=== PATIENT | male | born 1955 | race American Indian/Alaskan Native ===

== ENCOUNTER 2016-08-29 18:06 | Inpatient (IN) | payer OTHER ==
[2016-08-29 18:55] LABS: Anion Gap 16 mmol/L; BUN/Creatinine Ratio 11.57; Blood Urea Nitrogen 22 mg/dL (9-20); Calcium 9.2 mg/dL (8.4-10.2); Carbon Dioxide 28 mmol/L (22-30); Chloride 97.4 mmol/L (98-107); Glucose 98 mg/dL (75-100); Potassium 3.4 mmol/L (3.6-5.0); Sodium 138 mmol/L (137-145)
[2016-08-29 19:01] LABS: Basophils % (Auto) 0.5 % (0.0-1.8); Eosinophils % (Auto) 1.7 % (0.0-4.3); Hematocrit 42.5 % (35.5-45.6); Hemoglobin 13.8 gm/dl (11.8-15.2); Mean Corpuscular HGB Conc 33 % (32-34); Mean Corpuscular Hemoglobin 27 pg (28-32); Mean Corpuscular Volume 83 fl (84-94); Platelet Count 147 K/mm3 (140-440); Red Blood Count 5.14 M/mm3 (3.65-5.03); Red Cell Distribution Width 14.4 % (13.2-15.2); White Blood Count 6.3 K/mm3 (4.5-11.0)
--- NOTE | 2016-08-29 20:03 | XRay Report ---
FINAL REPORT EXAM: XR CHEST ROUTINE 2V HISTORY: Shortness of breath TECHNIQUE: PA and lateral chest radiographs PRIORS: None. FINDINGS: No focal consolidations are seen in the lungs and there are no pleural effusions.The cardiomediastinal silhouette is within normal limits for size and contour. No acute osseous abnormality is identified. IMPRESSION: 1. No definite radiographic evidence of acute cardiopulmonary disease. 2. No focal infiltrate is identified.
--- NOTE | 2016-08-30 07:20 | Emergency Department Report ---
HPI - General Chief Complaint: Weakness Time Seen by Provider: 08/30/16 06:58 - HPI HPI: This is a 61-year-old -[place] male who presents to the emergency department from home with complaint of a low heart rate and some dizziness. This been going on since early Tuesday morning, yesterday. Patient says that the dizziness feels as if he is going to pass out but he denies any vertigo- like sensation as if the room is spinning. He denies any headache, vision change, chest pain, shortness of breath or any other neurological deficits. His took his pulse at home and found it to be 40 bpm. He has a history of hypertension for which he takes losartan, hydrochlorothiazide and amlodipine. He has some known history of renal insufficiency. He otherwise did not take anything for symptoms prior to presentation. His primary care doctor is a Dr. Kiser and he does not have any cardiology group. No recent travel or sick contacts at home. ED Past Medical Hx - Past Medical History Previous Medical History?: Yes - Surgical History Past Surgical History?: Yes Additional Surgical History: Shoulder - Social History Smoking Status: Never Smoker Substance Use Type: None - Medications Home Medications: Home Medications Medication Instructions Recorded Confirmed Last Taken Type Chrom Allie/Brindal Mo [Garcinia 1 each PO DAILY 08/30/16 08/30/16 Unknown History Cambogia Tablet] Fenofibrate [Lofibra] 54 mg PO QDAY 08/30/16 08/30/16 Unknown History Latanoprost 0.005% [Xalatan 0.005%] 1 drop OP QPM 08/30/16 08/30/16 Unknown History Losartan/Hydrochlorothiazide 1 each PO DAILY 08/30/16 08/30/16 Unknown History [Losartan-Hctz 100-25 mg Tab] Timolol 0.5% [Timoptic] 1 drops OP BID 08/30/16 08/30/16 Unknown History amLODIPine [Norvasc] 10 mg PO DAILY 08/30/16 08/30/16 Unknown History traMADol [Ultram] 50 mg PO Q6HR PRN 08/30/16 08/30/16 Unknown History ED Review of Systems ROS: Stated complaint: DIZZY/POSS LOW PULSE Other details as noted in HPI Comment: All other systems reviewed and negative Constitutional: denies: chills, fever Eyes: denies: eye pain, eye discharge, vision change ENT: denies: ear pain, throat pain Respiratory: denies: cough, shortness of breath, wheezing Cardiovascular: denies: chest pain, palpitations Gastrointestinal: denies: abdominal pain, nausea, diarrhea Genitourinary: denies: urgency, dysuria Musculoskeletal: denies: back pain, joint swelling, arthralgia Skin: denies: rash, lesions Neurological: other (dizziness). denies: headache, weakness, paresthesias Physical Exam - Physical Exam Vital Signs: Vital Signs 08/29/16 08/30/16 08/30/16 18:08 04:53 06:12 Temperature 98.2 F 97.8 F 98.7 F Pulse Rate 48 L 44 L 47 L Respiratory 20 18 Rate Blood Pressure 119/84 150/90 Blood Pressure 134/79 [Left] O2 Sat by Pulse 99 100 99 Oximetry Physical Exam: GENERAL: The patient is well-developed well-nourished. HEENT: Normocephalic. Atraumatic. Extraocular motions are intact. Patient has moist mucous membranes. Pupils equal reactive to light bilaterally. No nystagmus. NECK: Supple. Trachea is midline. CHEST/LUNGS: Clear to auscultation. There is no respiratory distress noted. HEART/CARDIOVASCULAR: Regular. There is bradycardia. There is no gallop rub or murmur. ABDOMEN: Abdomen is soft, nontender. Patient has normal bowel sounds. There is no abdominal distention. SKIN: Skin is warm and dry. NEURO: The patient is awake, alert, and oriented. The patient is cooperative. The patient has no focal neurologic deficits. The patient has normal speech. Cranial nerves II through XII grossly intact. No pronator drift. No dysmetria. MUSCULOSKELETAL: There is no tenderness or deformity. There is no limitation range of motion. There is no evidence of acute injury. Muscle strength 5 out of 5 for upper and lower extremities bilaterally. ED Course Vital Signs 08/29/16 08/30/16 08/30/16 18:08 04:53 06:12 Temperature 98.2 F 97.8 F 98.7 F Pulse Rate 48 L 44 L 47 L Respiratory 20 18 Rate Blood Pressure 119/84 150/90 Blood Pressure 134/79 [Left] O2 Sat by Pulse 99 100 99 Oximetry ED Medical Decision Making - Lab Data Result diagrams: 08/29/16 18:19 08/29/16 18:19 - EKG Data -: EKG Interpreted by Me EKG shows normal: sinus rhythm, axis (left axis deviation), intervals (mild QRS widening), QRS complexes (LVH), ST-T waves Rate: bradycardia (49 bpm) - EKG Data When compared to previous EKG there are: previous EKG unavailable Interpretation: LVH, other (marked sinus bradycardia, left axis deviation, LVH) - Radiology Data Radiology results: report reviewed, image reviewed interpreted by me: Chest x-ray did not show any acute process. Heart is normal shape and size. No effusions. No pneumothorax. No signs of pneumonia seen. CT of the head does not show any acute process including no hemorrhage, mass, shift, diffuse edema or skull fracture. - Medical Decision Making 61-year-old male presents with some nonspecific dizziness as well as some bradycardia. Patient's heart rate seen going into the low 40s, as low as 42 bpm while at rest. EKG does not show any signs of dysrhythmia or heart block. Labs are most unremarkable including no electrolyte abnormalities, no signs of infection and normal thyroid function. CT of the head does not show any bleed, shift, mass, ischemic changes or any acute process. However the low 40s is too low for the patient to be discharged home despite the fact that he does not have any visible neurological deficits. He will be admitted to the hospital for further evaluation and has been accepted by the hospitalist, Dr. Hernandez - Differential Diagnosis heart block, dysrhythmia, CVA, medication induced Critical Care Time: No Critical care attestation.: If time is entered above; I have spent that time in minutes in the direct care of this critically ill patient, excluding procedure time. ED Disposition Clinical Impression: Dizziness, Bradycardia, Bradycardia with 41-50 beats per minute Disposition: OP ADMITTED IP TO THIS HOSP Is pt being admited?: Yes Condition: Stable Referrals: GUSTAVO ESTEBAN MD [Primary Care Provider] - 3-5 Days Time of Disposition: 10:06
--- NOTE | 2016-08-30 08:36 | Admit Criteria Form ---
Admission Criteria Documentation: CARDIOLOGY GRG Clinical Indications for Admission to Inpatient Care ( Place 'X' for any and all applicable criteria): Hospital admission is needed for appropriate care of the patient because of ANY ONE of the following (1): [ ] I. Hemodynamic instability as indicated by ALL of the following (1)(2)(3) (4)(5) [ ]a) Vital signs or other findings not as expected for chronic patient condition or baseline [ ]b) Instability indicated by ANY ONE of the following: [ ]i) Hypotension [ ]ii) Symptomatic Tachycardia unresponsive to treatment ( e.g., analgesia, fluids, sedation as indicated) [ ]iii) Inadequate perfusion indicated by ANY ONE of the following: [ ] 1) Lactic acidosis (> 2 mmol/L) [ ] 2) New abnormal capillary refill (> 3 seconds) [ ] 3) Reduced urine output [ ] 4) New altered mental status [ ]iv) Orthostatic vital sign changes unresponsive to treatment (e.g., fluids) [ ]v) IV inotropic or vasopressor medication required to maintain adequate blood pressure or perfusion [ ] II. Severe heart failure as indicated by ANY ONE of the following(17)(18) [ ]a) Respiratory distress [ ]b) Hypotension [ ]c) Anasarca (refractory to outpatient therapy) [ ]d) Cardiac arrhythmias of immediate concern [ ]e) Myocardial ischemia [ ] III. Cardiac arrhythmias or findings of immediate concern indicated by ANY ONE of the following (19)(20): [ ] a) Heart rhythms that are inherently dangerous or unstable indicated by ANY ONE of the following (21)(22)(23): [ ] i) Resuscitated ventricular fibrillation or cardiac arrest [ ] ii) Ventricular escape rhythm [ ] iii) Sustained ventricular tachycardia (30 seconds or more of ventricular rhythm at greater than 100 beats per minute) [ ] iv) Nonsustained ventricular tachycardia and ANY ONE of the following: [ ] 1) Suspected cardiac ischemia as cause or consequence of ventricular tachycardia [ ] 2) In setting of acute myocarditis [ ] b) Unstable cardiac conduction defects indicated by ANY ONE of the following(23)(24)(25) [ ] i) Type II second-degree atrioventricular block [ ]ii) Third-degree atrioventricular block [ ]iii) New-onset left bundle branch block with suspected myocardial ischemia [ ]c) Any heart rhythm and ANY ONE of the following (21)(22)(26)(27) (28) [ ] i) Continuous long-term ECG monitoring needed (e.g., initiation of drug requiring monitoring for more than 24 hours) [ ] ii) Patient has automatic implanted cardioverter defibrillator that is repeatedly firing, malfunctioning, or in need of immediate adjustment of settings beyond the scope of ambulatory or observation care [X]d) Heart rhythms of concern due to ANY ONE of the following: [ ] i) Hypotension [ ] ii) Respiratory distress [X] iii) Association with other significant symptoms (e.g., bradycardia with syncope or ongoing dizziness, supraventricular tachycardia with chest pain (14)(15)(17) [ ] IV. Monitoring for cardiac contusion beyond the scope of observation care needed [A](30)(31)(32) [ ] V. Surgical or device complication (e.g., valve replacement complication , pacemaker dysfunction) (35)(41)(44)(45)(46) [ ] . Inpatient palliative care needed. [B](49) Also use Inpatient Palliative Care Criteria [ ] VII. Nonbacterial thrombotic (marantic) endocarditis (36)(43)(47)(48) [ ] VIII. Cardiology condition, symptom, or finding for which emergency and observation care has failed or are not considered appropriate. [ ] IX. Acute valvular disease requiring inpatient as indicated by ANY ONE of the following (41) [ ]a) Acute valvular regurgitation (42) [ ]b) Noninfectious valvulitis (43) [ ]c) Obstructive valve thrombosis [ ]d) Paravalvular leak [ ]e) Other significant valvular disorder remaining after emergency or observation level of care (as appropriate) [ ]X. Pericardial disease requiring inpatient treatment as indicated by ANY ONE of the following (33)(34)(35)(36)(37) [ ]a) Suspected tamponade (38)(39)(40) [ ]b) Hemopericardium [ ]c) Other significant pericardial disorder remaining after emergency or observation level of care (as appropriate) [ ] XI. Cardiac ischemia beyond scope of emergency and observation care. [ ] XII. Hypertension requiring inpatient treatment as indicated by ANY ONE of the following (6)(7)(8) [ ]a) SBP greater than 220 mm Hg or DBP greater than 120 mmHg despite treatment [ ]b) SBP greater than 140 mm Hg or DBP greater than 100 mm Hg with evidence of acute end organ damage as indicated by ANY ONE of the following [ ] i) Altered mental status [ ] ii) Acute renal failure as indicated by new onset of ANY ONE of the following (9)(10)(11)(12)(13) [ ]1) 3-fold rise in serum creatinine from baseline [ ]2) Serum creatinine greater than 4 mg/dL ( 354 micromoles/L) with acute rise greater than 0.5 mg/dL (44.2 micromoles/L) [ ]3) Reduction of more than 75% in estimated glomerular filtration rate from baseline [ ]4) Estimated glomerular filtration rate less than 35 mL/min/1.73m2 (0.59 mL/sec/1.73m2) in child up to 18 years of age [ ]5) Cessation of urine output indicated by ALL of the following [ ]A. Adequate volume status [ ]B. Inadequate urine output as indicated by ANY ONE of the following [ ]a. Urine output less than 0.3 mL/kg/hr for 24 hours [ ]b. Anuria (urine output less than 0.1 mL/kg/hr) for 12 hours [ ] iii) Aortic dissection [ ] iv) Myocardial Ischemia [ ] v) Left ventricular heart failure [ ]vi) Retinal Hemorrhage [ ]vii) Other significant finding [ ]c) Hypertension in child requiring inpatient treatment as indicated by ALL of the following(14)(15)(16) [ ] i) Outpatient treatment not effective, not available, or not appropriate [ ]ii) SBP or DBP greater than 95th percentile for age [ ]iii) Evidence of acute end organ damage as indicated by ANY ONE of the following [ ]1) Altered mental status [ ]2) Acute renal failure as indicated by new onset of ANY ONE of the following(9)(10)(11)(12)(13) [ ]A. 3-fold rise in serum creatinine from baseline [ ]B. Serum creatinine greater than 4 mg/dL (354 micromoles/L) with acute rise greater than 0.5 mg/dL (44.2 micromoles/L) [ ]C. Reduction of more than 75% in estimated glomerular filtration rate from baseline [ ]D. Estimated glomerular filtration rate less than 35 mL/min/1.73m2 (0.59 mL/sec/1.73m2) in child up to 18 years of age [ ]E. Cessation of urine output indicated by ALL of the following [ ]a. Adequate volume status [ ]b. Inadequate urine output as indicated by ANY ONE of the following [ ]i) Urine output less than 0.3 mL/kg/hr for 24 hours [ ]ii) Anuria ( urine output less than 0.1 mL/kg/hr) for 12 hours [ ]3) Severe headache [ ]4) Visual disturbance [ ]5) Retinal hemorrhage [ ]6) Other significant finding [ ]XIII. Complications of transplanted heart indicated by ANY ONE of the following(61): [ ]a) Acute graft rejection requiring inpatient management (eg, intravenous immunosuppression)(62)(63) [ ]b) Acute graft heart failure indicated by ANY ONE of the following(64): [ ]i) Hemodynamic instability [ ]ii) Cardiac arrhythmias of immediate concern [ ]iii) Pulmonary edema that is very severe (eg, mechanical ventilation needed, imminent or likely, need for 100% oxygen to keep oxygen saturation above 90%) [ ]iv) Pulmonary edema that is persistent as indicated by ALL of the following: [ ]1) New need for oxygen therapy to keep oxygen saturation above 90% (or increased FiO2 need from baseline) [ ]2) Has not improved sufficiently with emergency department or observation care IV diuretics or other heart failure treatments[E] [ ]v) Altered mental status that is severe or persistent [ ]vi) Increased creatinine (new on laboratory test) with reduction of more than 50% in estimated glomerular filtration rate from baseline [ ]vii) Progressively (ongoing) rising creatinine (known from past laboratory test) with reduction of more than 25% in estimated glomerular filtration rate from baseline [ ]viii) Acute renal failure [ ]ix) Acute peripheral ischemia (eg, examination shows pulseless, cool, mottled, or cyanotic extremity) [ ]x) Pulmonary artery catheter monitoring needed [ ]xi) Other sign or symptom of heart failure requiring inpatient treatment (ie, too severe or not responsive to outpatient and observation care treatment) [ ]c) Infection requiring inpatient management (eg, Hemodynamic instability, need for intravenous antimicrobial treatment)(66)(67)(68)(69)(70) [ ]d) Cardiac allograft vasculopathy requiring inpatient management ( eg evidence of cardiac ischemia)(71) [ ]e) Other complication of transplanted heart (eg, stroke, severe pulmonary hypertension, severe valvular dysfunction) requiring inpatient management(72) The original [facility] content created by [facility] has been revised. The portions of the content which have been revised are identified through the use of italic text or in bold, and [facility] has neither reviewed nor approved the modified material. All other unmodified content is copyright [facility] [employer]. Please see references footnoted in the original [facility] [employer] edition 2016 Admission Criteria Met: Yes
--- NOTE | 2016-08-30 08:47 | Cat Scan Report ---
CT HEAD WITHOUT CONTRAST INDICATION: Dizziness. COMPARISON: None similar. FINDINGS: Noncontrast head CT demonstrates age appropriate, symmetric sulci and mildly enlarged ventricles without acute or recent infarct, hemorrhage, mass effect or midline shift. No abnormal extra-axial fluid collections. Posterior fossa structures and basilar cisterns are within normal limits. Symmetric eye globes. Mild mucosal thickening/air-fluid level in the left maxillary sinus. Mild ethmoid and minimal right maxillary sinus mucosal thickening. Clear remainder imaged paranasal sinuses and mastoid air cells. Intact calvarium. Normal overlying scalp soft tissues. Few radiopaque dental material incidentally noted. CONCLUSION: No acute intracranial CT abnormality with mild sinusitis, as described. Thank you for the opportunity to participate in this patient's care.
--- NOTE | 2016-08-30 09:58 | History and Physical Report ---
History of Present Illness Date of examination: 08/30/16 Date of admission: 08/30/16 Chief complaint: Lightheadedness History of present illness: A 61-year-old with history of hypertension, chronic kidney disease. PCP is at [facility]. [facility] day . Any chest pain or shortness of breath or palpitation. No dizziness his took his blood pressure which was normal but she observed her pulse was low 46. He was therefore brought to the emergency department for further evaluation. In emergency department pulse was in the 40s and sometimes goes down to 39 when she she is sleeping acquainted . Troponin was normal. He is been admitted for further management and cardiology evaluation Past History Past Medical History: hepatitis (Hepatitis C), hypertension, renal failure (CKD) Past Surgical History: Other (left shoulder surgery) Social history: , alcohol abuse (alcohol occasionally), full code. denies: smoking Family history: other (Father of cirrhosis of the liver) Medications and Allergies Allergies Allergy/AdvReac Type Severity Reaction Status Date / Time No Known Allergies Allergy Unverified 08/29/16 18:12 Home Medications Medication Instructions Recorded Confirmed Last Taken Type Chrom Allie/Brindal Mo [Garcinia 1 each PO DAILY 08/30/16 08/30/16 Unknown History Cambogia Tablet] Fenofibrate [Lofibra] 54 mg PO QDAY 08/30/16 08/30/16 Unknown History Latanoprost 0.005% [Xalatan 0.005%] 1 drop OP QPM 08/30/16 08/30/16 Unknown History Losartan/Hydrochlorothiazide 1 each PO DAILY 08/30/16 08/30/16 Unknown History [Losartan-Hctz 100-25 mg Tab] Timolol 0.5% [Timoptic] 1 drops OP BID 08/30/16 08/30/16 Unknown History amLODIPine [Norvasc] 10 mg PO DAILY 08/30/16 08/30/16 Unknown History traMADol [Ultram] 50 mg PO Q6HR PRN 08/30/16 08/30/16 Unknown History Review of Systems All systems: negative (no chest pain, no shortness of breath, no fever, no cough , no palpitations. All other systems reviewed and are negative) Exam - Physical Exam Narrative exam: Appearance: Not in acute distress, lying in bed HEENT: normocephalic, atraumatic Neck : supple, no JVD Lungs: Clear to auscultation bilaterally, no crackles or wheeze Heart : S1 and S2 regular, no murmurs, rubs or gallop Abdomen: soft, non-tender, non-distended, normal bowel sounds Extremities: No edema, no clubbing, no cyanosis Neuro: Awake, alert, oriented 3, no focal neurological signs Psych: normal mood - Constitutional Vitals: Temp Pulse Resp BP Pulse Ox 98.7 F 47 L 18 134/79 99 08/30/16 06:12 08/30/16 06:12 08/30/16 06:12 08/30/16 06:12 08/30/16 06:12 Results - Labs CBC & Chem 7: 08/29/16 18:19 08/29/16 18:19 Labs: Abnormal lab results 08/29/16 08/29/16 Range/Units 18:19 18:19 RBC 5.14 H (3.65-5.03) M/mm3 MCV 83 L (84-94) fl MCH 27 L (28-32) pg [place] % (Auto) 8.3 H (0.0-7.3) % Potassium 3.4 L (3.6-5.0) mmol/L Chloride 97.4 L (98-107) mmol/L BUN 22 H (9-20) mg/dL Creatinine 1.9 H (0.8-1.5) mg/dL Assessment and Plan Dizziness secondary to sinus bradycardia. Admit to telemetry. says his heart rate goes down to 30s when he sleeping. EKG shows sinus bradycardia. Initial troponin level normal. Consult cardiology emission technician Sinus bradycardia. He is not on any oral AV ralph blocking drugs. He is on Timolol opthalmic for glucoma. Will hold for now because of bradycardia Chronic kidney disease stage 3. He follows at [facility]. Avoid nephrotoxic agents Hypertension. Resume Norvasc Hypokalemia. Replace and recheck Glaucoma. Was on Timolol opthalmic. Will hold temporarily because severe bradycardia. DVT Prophylaxis with SCDs only. No anticoagulation for now in case patient needs any surgery or pacemaker placement Full code Status
[2016-08-30] MEDS ORDERED: TYLENOL PO PRN (10:00)
[2016-08-30] MEDS ORDERED: MORPHINE IV PRN (10:00)
[2016-08-30] MEDS ORDERED: ZOFRAN IV PRN (10:00)
[2016-08-30] MEDS ORDERED: ULTRAM PO PRN (10:07)
[2016-08-30] MEDS ORDERED: FENOFIBRATE 54 MG PO SCH (10:15)
[2016-08-30 10:38] LABS: Creatine Kinase MB 2.9 ng/mL (0.0-4.0)
[2016-08-30 10:40] LABS: Creatine Kinase 216 units/L (55-170)
[2016-08-30] MEDS ORDERED: K-DUR PO ONE (12:21)
[2016-08-30] MEDS: NORVASC PO SCH (13:47)
--- NOTE | 2016-08-30 13:53 | Consultation ---
History of Present Illness Consult date: 08/30/16 Requesting physician: ZEINAB LEON Consult reason: bradycardia History of present illness: Pt is a 61 YO male with a past medical history significant for HTN, CKD, hepatitis C, chronic pain, and glaucoma. He is previously unknown to our practice - his PCP is with [facility]. He presented with c/o dizziness and generalized weakness x 1 day [employer]. His at bedside states that yesterday, the pt began experiencing generalized weakness and then became intermittently dizzy. The pt's , who is a nurse, took pt's BP and noted pt's BP to be WNL but HR to be 46bpm. Pt denies any chest pain, SOB, palpitations, n/v, diaphoresis, or syncope. Pt denies any precipitating, aggravating, or alleviating factors. Pt's home PO medication regimen includes losartan, HCTZ, and amlodipine but no PO beta blockers. However, pt does take timolol eye drops BID for glaucoma. Pt denies any prior history of cardiac arrhythmia or bradycardia. Past History Past Medical History: hepatitis (Hepatitis C), hypertension, renal failure (CKD) Past Surgical History: Other (left shoulder surgery) Social history: , full code. denies: smoking, alcohol abuse Medications and Allergies Allergies Allergy/AdvReac Type Severity Reaction Status Date / Time No Known Allergies Allergy Unverified 08/29/16 18:12 Home Medications Medication Instructions Recorded Confirmed Last Taken Type Chrom Allie/Brindal Mo [Garcinia 1 each PO DAILY 08/30/16 08/30/16 Unknown History Cambogia Tablet] Fenofibrate [Lofibra] 54 mg PO QDAY 08/30/16 08/30/16 Unknown History Latanoprost 0.005% [Xalatan 0.005%] 1 drop OP QPM 08/30/16 08/30/16 Unknown History Losartan/Hydrochlorothiazide 1 each PO DAILY 08/30/16 08/30/16 Unknown History [Losartan-Hctz 100-25 mg Tab] Timolol 0.5% [Timoptic] 1 drops OP BID 08/30/16 08/30/16 Unknown History amLODIPine [Norvasc] 10 mg PO DAILY 08/30/16 08/30/16 Unknown History traMADol [Ultram] 50 mg PO Q6HR PRN 08/30/16 08/30/16 Unknown History Active Meds: Active Medications Acetaminophen (Tylenol) 650 mg PO Q4H PRN PRN Reason: Pain MILD(1-3)/Fever >100.5/PARADA Amlodipine Besylate (Norvasc) 10 mg PO DAILY [facility] Last Admin: 08/30/16 13:47 Dose: Not Given Fenofibrate (Tricor) 48 mg PO DAILY [facility] Morphine Sulfate (Morphine) 2 mg IV Q4H PRN PRN Reason: Pain, Moderate (4-6) Ondansetron HCl (Zofran) 4 mg IV Q6H PRN PRN Reason: nausea or vomiting Tramadol HCl (Ultram) 50 mg PO Q6HR PRN PRN Reason: Pain Review of Systems Constitutional: weakness, no weight loss, no weight gain, no fever, no chills, no sweats Ears, nose, mouth and throat: no ear pain, no nose pain, no sinus pressure, no sinus pain Cardiovascular: lightheadedness, high blood pressure, decreased exercise tolerance, no chest pain, no orthopnea, no palpitations, no rapid/irregular heart beat, no edema, no syncope, no shortness of breath, no dyspnea on exertion Respiratory: no cough, no shortness of breath, no dyspnea on exertion, no congestion, no wheezing, no pain Gastrointestinal: no abdominal pain, no nausea, no vomiting, no diarrhea, no constipation, no change in bowel habits Genitourinary Male: no dysuria, no hematuria, no flank pain, no discharge, no urinary frequency, no urinary hesitancy Musculoskeletal: no neck stiffness, no neck pain, no shooting arm pain, no arm numbness/tingling, no low back pain, no shooting leg pain, no leg numbness/ tingling, no redness of joints Integumentary: no rash, no pruritis, no redness, no sores, no wounds Neurological: weakness, no head injury, no paralysis, no parathesias, no numbness, no tingling, no seizures, no syncope, no tremors, no lack of coordination, no headaches Psychiatric: no anxiety Endocrine: no cold intolerance, no heat intolerance Hematologic/Lymphatic: no easy bruising, no easy bleeding, no lymphadenopathy Allergic/Immunologic: no urticaria, no wheezing, no persistent infections Physical Examination Vital Signs Temp Pulse BP Pulse Ox 98.2 F 48 L 119/84 99 05/21/17 18:08 08/29/16 18:08 08/29/16 18:08 08/29/16 18:08 General appearance: no acute distress HEENT: Positive: PERRL, Normocephaly, Mucus Membranes Moist Neck: Positive: neck supple, thyromegaly Cardiac: Positive: Regular Rhythm, S1/S2, Bradycardia Lungs: Positive: Normal Exam, clear to auscultation, Normal Breath Sounds, No Wheeze, Rales, Rhonchi Neuro: Positive: Grossly Intact Abdomen: Positive: Unremarkable, Soft, Active Bowel Sounds. Negative: Tender Skin: Positive: Clear. Negative: Rash, Wound Musculoskeletal: No Fluid Collection, No Pain, Normal Range of Motion Extremities: Present: normal, upper extr. pulses, lower extr. pulses. Absent: edema Results 08/29/16 18:19 08/29/16 18:19 Cardiac Enzymes 08/30/16 Range/Units 10:17 CK-MB (CK-2) 2.9 (0.0-4.0) ng/mL - Imaging and Cardiology Echo: pending EKG: report reviewed, image reviewed EKG interpretations - Telemetry EKG Rhythm: Sinus Bradycardia - EKG Sinus rhythms and dysrhythmias: sinus bradycardia Assessment and Plan Assessment: Symptomatic sinus bradycardia - TSH WNL. HTN CKD H/o hepatitis C Glaucoma Hypokalemia Plan: Hold all AV ralph blocking agents, including home timolol. Recommend discontinuation of timolol if okay per ophthalmology. Replete K+. Repeat BMP in AM. Obtain echo. Cont tele. Plan for treadmill stress test in AM to evaluate inotropic competence. NPO after MN. Assessment and plan reviewed with pt and pt's at bedside. The patient has been seen in conjunction with Dr. Gleason who agrees with the assessment and plan of care.
[2016-08-30] MEDS: HEPARIN SUB-Q SCH (22:55)
[2016-08-31] MEDS: HEPARIN SUB-Q SCH (06:32)
[2016-08-31 07:38] LABS: Basophils % (Auto) 0.9 % (0.0-1.8); Hematocrit 42.2 % (35.5-45.6); Hemoglobin 13.6 gm/dl (11.8-15.2); Mean Corpuscular HGB Conc 32 % (32-34); Mean Corpuscular Hemoglobin 27 pg (28-32); Mean Corpuscular Volume 82 fl (84-94); Platelet Count 129 K/mm3 (140-440); Red Blood Count 5.12 M/mm3 (3.65-5.03); Red Cell Distribution Width 14.4 % (13.2-15.2); White Blood Count 3.6 K/mm3 (4.5-11.0)
[2016-08-31 07:49] LABS: BUN/Creatinine Ratio 13.33; Chloride 103.9 mmol/L (98-107); Potassium 3.5 mmol/L (3.6-5.0)
[2016-08-31] MEDS ORDERED: COZAAR PO SCH (10:00)
[2016-08-31] MEDS ORDERED: TRICOR PO SCH (10:00)
--- NOTE | 2016-08-31 11:24 | Progress Note ---
Assessment and Plan Assessment: Symptomatic sinus bradycardia - improved; TSH WNL. HTN CKD H/o hepatitis C Glaucoma Hypokalemia Plan: s/p TST this AM normal - pt completed 10 minutes on treadmill, normal HR/BP response, no evidence of ischemia. Echo reviewed - EF 55-60%, abnormal diastolic function, LA mildly dilated. Cont to hold all AV ralph blocking agents, including home timolol. Recommend discontinuation of timolol if okay per ophthalmology. Recommend pt to f/u with [facility] within 2 weeks of hospital discharge. The patient has been seen in conjunction with Dr. Gleason who agrees with the assessment and plan of care. Subjective Date of service: 08/31/16 Principal diagnosis: symptomatic sinus bradycardia Interval history: Pt seen in stress lab, no complaints. Remained in SB overnight with HR mostly in 50s, BPs stable. Objective Last Vital Signs Temp 98.5 F 08/31/16 05:16 Pulse 60 08/31/16 05:42 Resp 18 08/31/16 05:16 BP 129/78 08/31/16 05:16 Pulse Ox 98 08/31/16 05:16 - Physical Examination General: Appears Well, No Apparent Distress HEENT: Positive: PERRL, Normocephaly, Mucus Membranes Moist Neck: Positive: neck supple, thyromegaly Cardiac: Positive: Regular Rhythm, S1/S2, Bradycardia Lungs: Positive: clear to auscultation Neuro: Positive: Grossly Intact Abdomen: Positive: Unremarkable, Soft, Active Bowel Sounds. Negative: Tender Skin: Positive: Clear. Negative: Rash, Wound Musculoskeletal: No Fluid Collection, No Pain, Normal Range of Motion Extremities: Present: normal, upper extr. pulses, lower extr. pulses. Absent: edema - Labs and Meds CBC 08/31/16 Range/Units 06:44 WBC 3.6 L (4.5-11.0) K/mm3 RBC 5.12 H (3.65-5.03) M/mm3 Hgb 13.6 (11.8-15.2) gm/dl Hct 42.2 (35.5-45.6) % Plt Count 129 L (140-440) K/mm3 Lymph # 1.7 (1.2-5.4) K/mm3 Dixie # 0.4 (0.0-0.8) K/mm3 Eos # 0.1 (0.0-0.4) K/mm3 Baso # 0.0 (0.0-0.1) K/mm3 Comprehensive Metabolic Panel 08/31/16 Range/Units 06:44 Sodium 144 (137-145) mmol/L Potassium 3.5 L (3.6-5.0) mmol/L Chloride 103.9 (98-107) mmol/L Carbon Dioxide 27 (22-30) mmol/L BUN 24 H (9-20) mg/dL Creatinine 1.8 H (0.8-1.5) mg/dL Glucose 93 (75-100) mg/dL Calcium 9.0 (8.4-10.2) mg/dL - Imaging and Cardiology EKG: report reviewed, image reviewed Echo: report reviewed - Telemetry EKG Rhythm: Sinus Bradycardia - EKG Sinus rhythms and dysrhythmias: sinus bradycardia
--- NOTE | 2016-08-31 11:31 | Discharge Summary ---
Providers - Providers Date of Admission: 08/30/16 10:00 Date of discharge: 08/31/16 Attending physician: ZEINAB LEON Primary care physician: GUSTAVO ESTEBAN Hospitalization Condition: Good Disposition: DISCHARGED TO HOME OR SELFCARE - Discharge Diagnoses (1) Bradycardia with 41-50 beats per minute Status: Acute (2) Dizziness Status: Acute Core Measure Documentation - Palliative Care Palliative Care/ Comfort Measures: Not Applicable Exam - Constitutional Vitals: Temp Pulse Resp BP Pulse Ox 98.5 F 60 18 129/78 98 08/31/16 05:16 08/31/16 05:42 08/31/16 05:16 08/31/16 05:16 08/31/16 05:16 Plan Activity: no restrictions Diet: low fat, low cholesterol, low salt Additional Instructions: 1.Follow up with PCP in 1 week. 2.Follow up with Opthalmology in 1-2 days to adress glucoma meds since Timolol opth stopped because of sever symptomatic bradycardia. 3.Follow up with Cardiology, Dr. Connolly in 1 week Follow up with: GUSTAVO ESTEBAN MD [Primary Care Provider] - 3-5 Days
[2016-08-31] MEDS ORDERED: FLUARIX QUAD 2016-2017(36 MOS+) IM ONE (12:00)
[2016-08-31] MEDS: NORVASC PO SCH (12:18)
[2016-08-31 14:28] VITALS: BP 143/79
== END 2016-08-31 12:50 | disposition home or self-care (01) | DRG 310 ==
LOC: ED 18:06 → 4A 08-30 10:00
PROVIDERS: ADMIT Internal Medicine; ATTEND Internal Medicine
PROC: 3E0234Z Introduction of Serum, Toxoid and Vaccine into Muscle, Percutaneous Approach (ICD-10-PCS; principal; 2016-08-30)
DX: R00.1 Bradycardia, unspecified (principal); I12.9 Hypertensive chronic kidney disease with stage 1 through stage 4 chronic kidney disease, or unspecified chronic kidney disease; N18.3 Chronic kidney disease, stage 3 (moderate); E87.6 Hypokalemia; H40.9 Unspecified glaucoma; G89.29 Other chronic pain; Z86.19 Personal history of other infectious and parasitic diseases
CPT/HCPCS: 36415; 70450; 71020; 80048; 82550; 82553; 83735; 84100; 84443; 84484; 85025; 90686; 93005; 93010; 93017; 93306; J1644